=== PATIENT | female | born 2000 | race African-American/Black ===

== ENCOUNTER 2024-04-04 12:57 | Outpatient (REF) | payer OTHER, SELFPAY ==
--- NOTE | ~2024-04-04 | US_ITS ---
EXAMINATION: US ABDOMEN COMPLETE CLINICAL INFORMATION: Abdominal pain. COMPARISON: None available. TECHNIQUE: Real-time imaging of the abdominal viscera. FINDINGS: PANCREAS: Normal. ABDOMINAL AORTA: The proximal, mid, and distal segments are normal in caliber. INFERIOR VENA CAVA: Visualized portions are normal. LIVER: Normal. The liver is normal in size. The liver contour is normal. Parenchymal echogenicity is normal. No focal hepatic lesion. There is no intrahepatic biliary duct dilatation seen. GALLBLADDER: Normal. The gallbladder is physiologically distended without evidence of stones, sludge, polyps, wall thickening or pericholecystic fluid. COMMON BILE DUCT: Normal in caliber measuring 0.1 cm in diameter. RIGHT KIDNEY: Normal. No hydronephrosis. No renal calculi or focal parenchymal lesions. The kidney measures 10.1 cm in maximum dimension. LEFT KIDNEY: Normal. No hydronephrosis. No renal calculi or focal parenchymal lesions. The kidney measures 9.4 cm in maximum dimension. SPLEEN: Normal. The spleen measures 9.9 cm in maximum dimension. FREE FLUID: None. US/US abdomen complete IMPRESSION: Normal abdominal ultrasound. Electronically signed by: Willie Gant MD 04/04/2024 02:20 PM EDT
== END 2024-04-04 12:58 | disposition home or self-care (01) ==
LOC: HO.UMASIMG 12:57
PROVIDERS: Visit Provider Nurse Practitioner
DX: R10.9 Unspecified abdominal pain (principal)
CPT/HCPCS: 76700

== ENCOUNTER 2024-04-09 06:53 | Outpatient (REF) | payer MEDICAID, SELFPAY ==
--- NOTE | ~2024-04-09 | US_ITS ---
EXAMINATION: US PELVIS CLINICAL INFORMATION: Pelvic pain. COMPARISON: None available. TECHNIQUE: Ultrasound of the pelvis is performed using both transabdominal and transvaginal transducers along with Doppler. Transvaginal imaging is performed due to inadequate visualization transabdominally. FINDINGS: Uterus: The uterus is anteverted and measures 7 x 3.5 x 4.6 cm. The endometrial thickness is 7 mm. The uterus is smooth in contour and has normal myometrial echogenicity. No visible fibroid. Adnexa: Both ovaries are visualized. There is normal color flow to the adnexa. There is no ovarian torsion. There is no pelvic ascites or fluid collection. There is a 1.2 x 1.3 x 1.2 cm complex cystic mass in the left ovary with internal low-level echoes, consistent with a small hemorrhagic cyst. No suspicious adnexal/ovarian masses seen bilaterally. Right ovary measures 2.3 x 2.6 x 2.1 cm. 6.4 Left ovary measures 3.2 x 2.1 x 2.7 cm. 9.5 US/US pelvic and transvaginal IMPRESSION: 1. Small complex cystic mass in the left ovary is seen, consistent with a small hemorrhagic cyst. No specific imaging follow-up is recommended. 2. Otherwise unremarkable exam. Electronically signed by: Mónica Luke MD 04/09/2024 05:25 PM EDT
== END 2024-04-09 06:54 | disposition home or self-care (01) ==
LOC: HO.UMASIMG 06:53
PROVIDERS: Visit Provider Nurse Practitioner
DX: R10.9 Unspecified abdominal pain (principal)
CPT/HCPCS: 76830; 76856

== ENCOUNTER 2025-03-18 06:19 | Outpatient (REF) | payer MEDICAID, SELFPAY ==
--- NOTE | ~2025-03-18 | US_ITS ---
CLINICAL HISTORY: ABD PAIN Exam: 1. Ultrasound of the abdomen, complete. 2. Duplex ultrasound of the main portal vein. Comparison: None provided. Findings: Liver measures 12 cm in long axis. Liver is of normal echotexture without focal lesion or intrahepatic biliary ductal dilatation. Common bile duct is within normal limits. Gallbladder is unremarkable without gallbladder wall thickening, pericholecystic fluid, or cholelithiasis. Negative sonographic Benito's sign. Pancreas and spleen are unremarkable. Kidneys are of normal echotexture without focal lesion, nephrolithiasis, hydronephrosis. Aorta and inferior vena cava are patent. No free fluid. Duplex evaluation of the main portal vein was performed. This included real-time grayscale, color spectral Doppler analysis, and color Doppler flow imaging. Main portal vein is patent with hepatopetal flow. Impression: Unremarkable abdominal ultrasound. This document has been electronically signed by: Remi Duarte MD on 03/18/2025 14:05:23
--- NOTE | ~2025-03-18 | US_ITS ---
CLINICAL HISTORY: CHRONIC RLQ PAIN Exam: Pelvic ultrasound, transabdominal and transvaginal evaluation. Comparison: None provided. Findings: Transabdominal and transvaginal pelvic ultrasound studies performed. Urinary bladder is mildly distended on the transabdominal images. Uterus is anteverted and anteflexed. Uterus measures 9.9 x 4.3 x 6.0 cm in size. Heterogeneous echotexture throughout the myometrium without discrete fibroid. Endometrial stripe measures 17 mm in thickness without mass, polyp, or focal thickening. Right ovary measures 3.5 x 2.2 x 2.2 cm in size. Right ovary is unremarkable in appearance. Left ovary measures 3.5 x 2.3 x 2.4 cm in size. Simple cysts and follicles are seen within the left ovary measure up to 12 mm in size. No suspicious ovarian masses. Small volume free pelvic fluid. Impression: Unremarkable pelvic ultrasound. This document has been electronically signed by: Remi Duarte MD on 03/18/2025 14:07:54
--- OUTSIDE RECORDS SUMMARY | 2025-03-18 06:21 | XMS_ITS ---
Author Name [facility] Organization Unknown Encounters Encounter Type Encounter Reason Primary Diagnosis Location Date Ambulatory [facility] 02/27/2025 Care Team Organization Name Specialty Phone Email Start Date End Da te [facility] 03/02
== END 2025-03-18 06:20 | disposition home or self-care (01) ==
LOC: HO.UMASIMG 06:19
PROVIDERS: Visit Provider Family Medicine
DX: R10.9 Unspecified abdominal pain (principal); D72.819 Decreased white blood cell count, unspecified
CPT/HCPCS: 76700; 76830; 76856

== ENCOUNTER → 2025-03-18 09:30 | Outpatient (BNV) | payer MEDICAID, SELFPAY | PROVIDERS: Visit Provider Radiology Diagnostic Radiology | DX: R10.31 Right lower quadrant pain (principal); N83.02 Follicular cyst of left ovary | CPT/HCPCS: 76700; 76830; 76856 ==

== ENCOUNTER 2025-03-25 06:28 | Outpatient (REF) | payer MEDICAID, SELFPAY | END 2025-03-25 06:29 | disposition home or self-care (01) | LOC: HO.UMASIMG 06:28 | PROVIDERS: Visit Provider Family Medicine | DX: Z13.89 Encounter for screening for other disorder (principal) ==